=== PATIENT | female | born 1955 | race Caucasian/White ===

== ENCOUNTER 2016-08-31 10:55 | Observation (INO) | payer BC ==
[~2016-08-31] VITALS: Ht 167.6 cm; Wt 137.5 kg
[~2016-08-31 10:55] MED LIST: ADVIL200 MG PO; ALCALAK PO; ALLEGRA-D 241 TABLET PO; AMLODIPINE BESY10 MG PO; ANTACID ULTRA1000 M1 PO; ASPIR-LOW81 MG PO; ATORVASTATIN CA10 MG PO; BIOTIN10000 MC1 PO; BLACK COHOSH540 MG PO; CALCITRATE + D1 EACH PO; CALCIUM 500 +1 EAC2 PO; CITRACAL-VIT D1 EACH PO; CLONIDINE HCL0.1 MG PO; CYANOCOBALAM1000 MCG PO; GAS-X80 MG PO; GEMFIBROZIL600 MG PO; HYDROCHLOROTHIA25 MG PO; IRON325 M1 PO; JANUVIA100 MG PO; LANTUS 3 M100 UNITS1 SC; LOSARTAN POTAS100 MG PO; Lipitor PO; MEGARED OMEGA-1 EAC2 PO; NOVOLOG MI100 UNIT/M SC; PANTOPRAZOLE SO40 MG PO; PHILLIPS500 MG PO; PROBIOTIC1 EAC2 PO; RANITIDINE HCL150 MG PO; Tylenol Regular Stre PO; [UNRECOGNIZED DRUG - OTHER] PO
[2016-08-31 12:44] LABS: CHLORIDE 104 mEq/L (99-109); POTASSIUM 4.6 mEq/L (3.7-5.4); SODIUM 140 mEq/L (136-147)
[2016-08-31 12:46] LABS: GLUCOSE 79 mg/dL (70-99)
[2016-08-31 12:47] LABS: ANION GAP 13 MEQ/L (2-14)
[2016-08-31 12:50] LABS: GFR ESTIMATE (CALCULATED) 45 mL/min/
[2016-08-31 12:51] LABS: UREA NITROGEN (BUN) 40 mg/dL (9-23)
[2016-08-31 12:54] LABS: HEMATOCRIT 40.2 % (36.0-46.0); MCH 25.5 PG (29.0-34.0); MCHC 30.6 G/DL (30.0-36.0); MCV 83.4 FL (83-99); MEAN PLAT.VOLUME 11.2 uM^3 (9.5-12.4); PLATELET COUNT 329 K/uL (156-360); RBC DIS.WIDTH-CV 13.8 % (11.8-14.6); RBC DIS.WIDTH-SD 42.2 % (39-53); RED BLOOD COUNT 4.82 M/uL (3.80-5.20); WHITE BLOOD COUNT 9.7 K/uL (4.1-10.2)
[2016-08-31 12:55] LABS: TROP-I INTERPRETATION NEGATIVE; TROPONIN-I < 0.01 ng/mL (0.0-0.30)
[2016-08-31] MEDS ORDERED: HYDROCHLOROTHIA25 MG PO (16:47)
[2016-08-31] MEDS ORDERED: LOSARTAN POTAS100 MG PO (16:49)
[2016-08-31] MEDS ORDERED: PROTONIX40 MG PO (16:50)
[2016-08-31] MEDS ORDERED: VITAMIN B-12 51 EACH SL (16:51)
[2016-08-31] MEDS ORDERED: BENEFIBER236 GM PO (16:52)
[2016-08-31] MEDS ORDERED: BACK & BODY PA1 EACH PO (16:56)
[2016-08-31] MEDS ORDERED: LIDOCAINE700 MG TD (16:57)
[2016-08-31] MEDS ORDERED: [UNRECOGNIZED DRUG - OTHER] PO (16:59)
[2016-08-31 17:38] VITALS: BP 196/86
[2016-08-31 19:24] LABS: TROP-I INTERPRETATION NEGATIVE; TROPONIN-I 0.03 ng/mL (0.0-0.30)
[2016-08-31 20:30] VITALS: BP 149/65
[2016-09-01 00:13] VITALS: BP 119/57
[2016-09-01 00:57] LABS: TROP-I INTERPRETATION NEGATIVE; TROPONIN-I 0.02 ng/mL (0.0-0.30)
[2016-09-01 04:28] VITALS: BP 129/62
[2016-09-01 08:30] VITALS: BP 150/67
[2016-09-01 08:51] LABS: POINT-OF-CARE METER ID UU13113831
[2016-09-01] MEDS ORDERED: PANTOPRAZOLE SO40 MG PO (10:57)
== END 2016-09-01 12:02 | disposition home or self-care (01) ==
LOC: EME 10:55 → EDOF 16:21 → 5WEST 17:19
PROVIDERS: Hospitalist; Internal Medicine
DX: R07.89 Other chest pain (principal); E11.9 Type 2 diabetes mellitus without complications; I10 Essential (primary) hypertension; Z96.652 Presence of left artificial knee joint; K27.7 Chronic peptic ulcer, site unspecified, without hemorrhage or perforation; K21.9 Gastro-esophageal reflux disease without esophagitis; E66.9 Obesity, unspecified; Z68.42 Body mass index [BMI] 45.0-49.9, adult
CPT/HCPCS: 71020; 80048; 82948; 84484; 85027; 93005; 99281; 99285; G0378; J1650; J1815